=== PATIENT | male | born 1975 | race Caucasian/White ===

== ENCOUNTER → 2023-12-31 | Outpatient (CLI) | payer BC ==
--- NOTE | 2023-12-31 18:56 | CT ---
EXAMINATION TYPE: CT abdomen pelvis wo/w con CT DLP: 2572 mGycm, Automated exposure control for dose reduction was used. DATE OF EXAM: 12/31/2023 6:40 PM COMPARISON: None CLINICAL INDICATION:Male, 48 years old with history of R10.32, LEFT LOWER QUADRANT PAIN; LLQ abdomina l pain x 1 day TECHNIQUE: Standard CT of the abdomen and pelvis before and after the administration of 100 cc of i ntravenous contrast. Oral contrast was administered. Coronal and sagittal reformats were performed. FINDINGS: LOWER CHEST: Patchy mixed groundglass and consolidative opacity within the medial aspect of the middl e left lower lobe. ABDOMEN LIVER: Subcentimeter hypodense focus within the right hepatic lobe which is too small to accurately c haracterize. GALLBLADDER AND BILE DUCTS: Unremarkable. PANCREAS: Unremarkable. SPLEEN: Unremarkable. ADRENAL GLANDS: Unremarkable. KIDNEYS AND URETERS: No evidence of hydronephrosis or renal calculus. The kidneys enhance symmetrical ly. The ureters are unremarkable. Contrast is demonstrated within both collecting systems on the del ayed phase. PELVIS BLADDER: Incompletely distended but grossly unremarkable. REPRODUCTIVE: Unremarkable. ABDOMEN & PELVIS STOMACH AND BOWEL: No focal wall thickening. The appendix is within normal limits. No surrounding inf lammatory changes. Enteric contrast reaches the cecum. 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 No evidence of bowel obstruction. PERITONEUM: No evidence of pneumoperitoneum or free fluid. VASCULATURE: No evidence of aortic aneurysm. Left-sided pelvic phleboliths. MUSCULOSKELETAL: No acute osseous abnormalities LYMPH NODES: No gross evidence for lymphadenopathy. SOFT TISSUE/ABDOMINAL WALL: Small fat filled hernia. Bilateral fat filled inguinal hernias with right greater than left. IMPRESSION: 1. No acute intra-abdominal/pelvic process. 2. Left lower lobe patchy ground glass/consolidative opacity which may represent pneumonia versus inf arct. Consider further evaluation with CTA chest if there is concern for pulmonary embolism. 3. Bilateral fat filled inguinal hernias with right greater than left.
[2024-01-01 03:20] LABS: Basophils # (A) 0.05 X 10*3/uL (0.00-0.10); Basophils % (A) 0.5 %; Eosinophils # (A) 0.24 X 10*3/uL (0.04-0.35); Eosinophils % (A) 2.6 %; HCT 45.7 % (39.6-50.0); HGB 15.5 g/dL (13.0-17.0); Lymphocytes # (A) 1.86 X 10*3/uL (0.90-5.00); Lymphocytes % (A) 20.2 %; MCH 29.6 pg (27.0-32.0); MCHC 33.9 g/dL (32.0-37.0); MCV 87.2 FL (80.0-97.0); Mean Platelet Volume 9.7 FL (9.5-12.2); Monocytes # (A) 0.95 X 10*3/uL (0.20-1.00); Monocytes % (A) 10.3 %; NRBC Per 100 WBC 0 X 10*3/uL (0.00-0.01); Neutrophils # (A) 6.04 X 10*3/uL (1.80-7.70); Neutrophils % (A) 65.7 %; Platelet Count 244 X 10*3/uL (140-440); RBC 5.24 X 10*6/uL (4.40-5.60); RDW 11.9 % (11.5-14.5)
[2024-01-01 03:42] LABS: ALT 38 U/L (10-49); AST 29 U/L (14-35); Albumin 4.6 g/dL (3.8-4.9); Albumin/Globulin Ratio 1.84 Ratio (1.60-3.17); Alkaline Phosphatase 103 U/L (41-126); Amylase 34 U/L (23-121); Blood Urea Nitrogen 14.5 mg/dL (9.0-27.0); Calcium 9.3 mg/dL (8.7-10.3); Carbon Dioxide 28.3 mmol/L (21.6-31.8); Chloride 102 mmol/L (96-109); Globulin 2.5 g/dL (1.6-3.3); Glucose 86 mg/dL (70-110); Lipase 17 U/L (14-60); Potassium 4.6 mmol/L (3.5-5.5); Sodium 140 mmol/L (135-145); Total Bilirubin 0.4 mg/dL (0.3-1.2); Total Protein 7.1 g/dL (6.2-8.2)
== END | disposition home or self-care (01) ==
LOC: RADCTMAIN 16:39
PROVIDERS: ATTEND Family Medicine
DX: K40.20 Bilateral inguinal hernia, without obstruction or gangrene, not specified as recurrent (principal)
CPT/HCPCS: 80053; 82150; 83690; 85025; 74178; Q9967

== ENCOUNTER → 2024-01-05 | Outpatient (CLI) | payer BC ==
--- NOTE | 2024-01-05 14:45 | XR ---
EXAMINATION TYPE: XR chest 2V DATE OF EXAM: 01/05/2024 2:10 PM CLINICAL INDICATION:Male, 48 years old with history of OTHER NONSPECIFIC ABNORMAL FINDING OF LUNG FIE LD; PHH COMPARISON: Chest radiographs from 01/05/2024 TECHNIQUE: XR chest 2V Frontal and lateral views of the chest. FINDINGS: Lungs/Pleura: There is no evidence of pleural effusion, focal consolidation, or pneumothorax. Pulmonary vascularity: Unremarkable. Heart/mediastinum: Cardiomediastinal silhouette is unremarkable. Musculoskeletal: No acute osseous pathology. IMPRESSION: No acute cardiopulmonary disease/process.
== END | disposition home or self-care (01) ==
LOC: RADXRMAIN 13:56
PROVIDERS: ATTEND Family Medicine
DX: R91.8 Other nonspecific abnormal finding of lung field (principal)
CPT/HCPCS: 71046